=== PATIENT | female | born 1990 | race Caucasian/White ===

== ENCOUNTER 2018-10-15 18:08 | Emergency (ER) | payer OTHER ==
[~2018-10-15] VITALS: Ht 152.4 cm; Wt 59.0 kg
[2018-10-15 18:24] VITALS: Ht 152.4 cm; Wt 59.0 kg
[2018-10-15 19:21] VITALS: BP 136/72
== END 2018-10-15 19:21 | disposition home or self-care (01) ==
LOC: ED 18:08
DX: M79.674 Pain in right toe(s) (principal); F41.9 Anxiety disorder, unspecified